=== PATIENT | female | born 1950 | race Caucasian/White ===

== ENCOUNTER → 2016-10-29 | Outpatient (CLI) | payer OTHER ==
[~2016-10-29] MED LIST: AMLO5CAP2 PO; AMPH30TA2 PO; TRAZ50TA35 PO
[2016-10-29 13:11] LABS: BASO % 0.4 %; BASO ABS # 0.07 K/uL (0-0.2); COMPLETE YES; EOS % 2.8 %; HEMATOCRIT 35.2 % (37-47); IG% 0.3 %; LYMPH % 14.5 %; LYMPH ABS # 2.67 K/uL (1.2-3.4); MEAN CELL VOLUME 93.4 fL (80-100); MEAN CORPUSCULAR HEMOGLOBIN 31.6 pg (25-34); MEAN CORPUSCULAR HGB CONC 33.8 g/dl (32-36); MEAN PLATELET VOLUME 10.4 fL (7.4-10.4); MONO % 8.4 %; NEUT % 73.6 %; PLATELET COUNT 416 K/uL (130-400); RED BLOOD COUNT 3.77 M/uL (4.2-5.4); WHITE BLOOD COUNT 18.37 K/uL (4.8-10.8)
[2016-10-29 13:29] LABS: ALT/SGPT 17 U/L (12-78); AST/SGOT 16 U/L (15-37); BLOOD UREA NITROGEN 13 mg/dl (7-18); BUN/CREATININE RATIO 16.5 (10-20); CALCIUM 9.3 mg/dl (8.5-10.1); CARBON DIOXIDE 27 mmol/L (21-32); CHLORIDE 106 mmol/L (98-107); CHOLESTEROL 192 mg/dl (0-200); CREATININE 0.78 mg/dl (0.60-1.20); GLUCOSE 86 mg/dl (70-99); POTASSIUM 3.6 mmol/L (3.5-5.1); SODIUM 141 mmol/L (136-145); TRIGLYCERIDES 45 mg/dl (0-150); VERY LOW DENSITY LIPOPROT CALC 9 mg/dl
[2016-10-29 13:39] LABS: ALB/GLOB RATIO 0.9 (0.9-2); ALKALINE PHOSPHATASE 62 U/L (45-117); HDL CHOLESTEROL 95 mg/dl; LDL CHOLESTEROL CALCULATED 88 mg/dl
== END | disposition home or self-care (01) ==
LOC: C.LABMFLN 07:56
PROVIDERS: ATTEND Physician Assistant
DX: E78.5 Hyperlipidemia, unspecified (principal); F32.9 Major depressive disorder, single episode, unspecified; F41.9 Anxiety disorder, unspecified; F90.9 Attention-deficit hyperactivity disorder, unspecified type; I10 Essential (primary) hypertension

== ENCOUNTER 2017-01-14 04:43 | Emergency (ER) | payer OTHER ==
[~2017-01-14] VITALS: Ht 147.3 cm; Wt 46.2 kg
[2017-01-14 04:47] VITALS: TEMP 36.7; Ht 147.3 cm; Wt 46.2 kg
[2017-01-14] MEDS ORDERED: ONDANSETRON INJ 2 MG/ML 2 ML VIAL IV STA (05:08)
[2017-01-14] MEDS ORDERED: DiphenhydrAMINE HCL 50 MG/ML VIAL IV STA (05:08)
[2017-01-14] MEDS ORDERED: SODIUM CHLORIDE 0.9% 1000ML 1,000 ML IV STA (05:08)
[2017-01-14] MEDS ORDERED: AMPH30TA2 PO (05:12)
[2017-01-14] MEDS ORDERED: AMLO5CAP2 PO (05:12)
[2017-01-14] MEDS ORDERED: TRAZ50TA35 PO (05:12)
--- NOTE | 2017-01-14 05:12 | EMERGENCY ROOM VISIT NOTE ---
History Report prepared by Mariya: Med Fernández Under the Supervision of: Dr. Susan Fragoso D.O. First contact with patient: 04:56 Chief Complaint: ALLERGIC REACTION Stated Complaint: TONGUE SWELLIING History of Present Illness The patient is a 66 year old female who presents to the Emergency Room with complaints of an allergic reaction that began 4 hours ago. She is experiencing tongue swelling that began at this time. This occurred 1 year ago, but she does not know why or from what. She also experienced vomiting that began yesterday. She took Pepto Bismol to try to alleviate this symptom. She is currently experiencing nausea and abdominal pain. She denies any fever or diarrhea. She notes that the GI symptoms did not occur with the tongue swelling 1 year ago. She is also having mild trouble swallowing. She is currently taking Benazepril regularly. She also has a past medical history of a splenectomy. Source of History: patient Onset: 4 hours ago Position: tongue Symptom Intensity: mild Quality: other (Swelling) Timing: constant Associated Symptoms: + nausea, + vomiting, + abdominal pain, No fevers, No diarrhea Review of Systems See HPI for pertinent positives & negatives. A total of 10 systems reviewed and were otherwise negative. Past Medical & Surgical Medical Problems: (1) ADHD (attention deficit hyperactivity disorder) (2) Anxiety (3) Depression (4) HTN (hypertension) (5) Hyperlipidemia Surgical Problems: (1) History of splenectomy Family History Omitted secondary to age. Social History Smoking Status: Never Smoker Smokeless Tobacco Use: No Drug Use: none Marital Status: Housing Status: lives with significant other Occupation Status: retired Current/Historical Medications Scheduled Amlodipine/Benazepril (Lotrel 5MG/20MG), 1 CAP PO BID Amphetamine-Dextroamphetamine 30MG (Adderall 30MG), 30 MG PO DAILY Trazodone Hcl (Trazodone), 50 MG PO HS Allergies Coded Allergies: No Known Allergies (Unverified , 01/14/17) Physical Exam Vital Signs Date Time Temp Pulse Resp B/P (MAP) Pulse Ox O2 Delivery O2 Flow Rate FiO2 01/14/17 06:23 71 20 127/79 98 01/14/17 05:25 70 20 148/74 97 Room Air 01/14/17 05:07 Room Air 01/14/17 04:58 77 01/14/17 04:47 36.7 81 16 133/84 98 Room Air Physical Exam HEENT: Head - normocephalic and atraumatic. Pupils are equal, round, and reactive to light. Extraocular eye muscles are intact, and sclera are anicteric. Nose - moist nasal mucosa without discharge. Mouth - moist buccal mucosa. Oropharynx is nonerythematous and there is no tonsillar exudate. Very minimal swelling to the right side of the tongue. There is some slight black discoloration to the patient's tongue. Neck: Supple; no JVD, nuchal rigidity, cervical lymphadenopathy. Heart: Regular rate and rhythm. There is a normal S1 and S2 with no murmurs, clicks, or gallops appreciated. Lungs: Clear to auscultation bilaterally with no wheezes, rales, or rhonchi. Abdomen: Soft, completely nontender, nondistended, with good bowel sounds. There are no palpable pulsatile masses or hepatosplenomegaly. There is no guarding, rigidity, or rebound noted. Extremities: No evidence of cyanosis, clubbing, or edema. There are easily palpable peripheral pulses. Skin: warm and dry with good turgor and no rashes. Medical Decision & Procedures Laboratory Results 01/14/17 05:30 Red Blood Count 4.58, Mean Corpuscular Volume 91.5, Mean Corpuscular Hemoglobin 30.3, Mean Corpuscular Hemoglobin Concent 33.2, Neutrophils (%) (Auto) 58.6, Lymphocytes (%) (Auto) 32.1, Monocytes (%) (Auto) 7.5, Eosinophils (%) (Auto) 1.2, Basophils (%) (Auto) 0.4, Neutrophils # (Auto) 6.67, Lymphocytes # (Auto) 3.65, Monocytes # (Auto) 0.85, Eosinophils # (Auto) 0.14, Basophils # (Auto) 0.04 01/14/17 05:30 Test 01/14/17 05:30 White Blood Count 11.37 K/uL (4.8-10.8) Red Blood Count 4.58 M/uL (4.2-5.4) Hemoglobin 13.9 g/dL (12.0-16.0) Hematocrit 41.9 % (37-47) Mean Corpuscular Volume 91.5 fL (80-100) Mean Corpuscular Hemoglobin 30.3 pg (25-34) Mean Corpuscular Hemoglobin Concent 33.2 g/dl (32-36) Platelet Count 526 K/uL (130-400) Neutrophils (%) (Auto) 58.6 % Lymphocytes (%) (Auto) 32.1 % Monocytes (%) (Auto) 7.5 % Eosinophils (%) (Auto) 1.2 % Basophils (%) (Auto) 0.4 % Neutrophils # (Auto) 6.67 K/uL (1.4-6.5) Lymphocytes # (Auto) 3.65 K/uL (1.2-3.4) Monocytes # (Auto) 0.85 K/uL (0.11-0.59) Eosinophils # (Auto) 0.14 K/uL (0-0.5) Basophils # (Auto) 0.04 K/uL (0-0.2) Immature Granulocyte % (Auto) 0.2 % Immature Granulocyte # (Auto) 0.02 K/uL (0.00-0.02) Anion Gap 5.0 mmol/L (3-11) Est Creatinine Clear Calc Drug Dose 42.6 ml/min Estimated GFR () 83.3 Estimated GFR (Non- 71.9 BUN/Creatinine Ratio 11.6 (10-20) Calcium Level 9.3 mg/dl (8.5-10.1) Laboratory results per my review. Medications Administered Medications (Trade) Dose Ordered Sig/Ingrid Route Start Time Stop Time Status Last Admin Dose Admin Diphenhydramine HCl (Benadryl Inj) 25 mg NOW STAT IV 01/14/17 05:08 01/14/17 05:10 DC 01/14/17 05:23 25 MG Ondansetron HCl (Zofran Inj) 4 mg NOW STAT IV 01/14/17 05:08 01/14/17 05:10 DC 01/14/17 05:23 4 MG Sodium Chloride 1,000 ml @ 999 mls/hr Q1H1M STAT IV 01/14/17 05:08 01/14/17 06:08 DC 01/14/17 05:23 999 MLS/HR Procedure Sodium Chloride 1000 ml @ 999 mls/hr IV Zofran Inj 4 mg IV Benadryl Inj 25 mg IV ED Course 0456: Past medical records reviewed. The patient was evaluated in room B4B. A complete history and physical exam was performed. An IV lock was initiated and labs were drawn as above. 0508: Ordered Sodium Chloride 1000 ml @ 999 mls/hr IV, Zofran Inj 4 mg IV, Benadryl Inj 25 mg IV 0550: After reexamination, the patient feels better. Her tongue swelling has gone down. She is no longer nauseated. She will try to drink cranberry juice. 0624: Upon reevaluation, the patient is resting. I discussed findings and results with her. She is able to drink without any difficulty. She verbalized agreement of the treatment plan. She was discharged home. Medical Decision The patient is a 66 year old female who presents to the ED with an allergic reaction. Differential diagnosis includes allergic reaction, gastritis, viral illness, and angioedema. I attest that I have personally reviewed the patient's current medication list. Patient was found to have normal blood pressure on screening and does not require follow-up. Laboratory Results: Normal renal function, glucose 104, mild leukocytosis with a white blood cell count of 11.3, and stable H&H. The patient has been taking an ABUNDIO inhibitor for a long time. She developed swelling to the group home of her tongue seemed evening. She has been having some vomiting over the past 12 hours. I explained to her that the tongue swelling could be secondary to angioedema from an ABUNDIO inhibitor. She will need to stop this medication. She received Zofran here in the emergency department and no longer is nauseated. She is able to drink clear liquids. I have asked her to follow-up with her PCP with regards to new blood pressure medications. If symptoms worsen, she should return to the ER. Impression Primary Impression: ABUNDIO inhibitor-aggravated angioedema Additional Impression: Vomiting Scribe Attestation The scribe's documentation has been prepared under my direction and personally reviewed by me in its entirety. I confirm that the note above accurately reflects all work, treatment, procedures, and medical decision making performed by me. Departure Information Dispostion Home / Self-Care Referrals Carrie Julien Forms HOME CARE DOCUMENTATION FORM, IMPORTANT VISIT INFORMATION Patient Instructions ED Angioedema, My [facility], Vomiting - [facility] Additional Instructions Rest. Take plenty of clear liquids and a bland diet. Stop your combination BP med as it has an Abundio Inhibitor in it that may have caused your tongue swelling. Follow up with your PCP with regards to a different BP med Problem Qualifiers Primary Impression: ABUNDIO inhibitor-aggravated angioedema Encounter type: initial encounter Qualified Codes: T78.3XXA - Angioneurotic edema, initial encounter; T46.4X5A - Adverse effect of angiotensin-converting- enzyme inhibitors, initial encounter Additional Impression: Vomiting Vomiting type: unspecified Vomiting Intractability: non-intractable Nausea presence: with nausea Qualified Codes: R11.2 - Nausea with vomiting, unspecified
[2017-01-14 06:05] LABS: BASO % 0.4 %; BASO ABS # 0.04 K/uL (0-0.2); COMPLETE YES; EOS % 1.2 %; HEMATOCRIT 41.9 % (37-47); IG% 0.2 %; LYMPH % 32.1 %; LYMPH ABS # 3.65 K/uL (1.2-3.4); MEAN CELL VOLUME 91.5 fL (80-100); MEAN CORPUSCULAR HEMOGLOBIN 30.3 pg (25-34); MEAN CORPUSCULAR HGB CONC 33.2 g/dl (32-36); MONO % 7.5 %; NEUT % 58.6 %; PLATELET COUNT 526 K/uL (130-400); RED BLOOD COUNT 4.58 M/uL (4.2-5.4); WHITE BLOOD COUNT 11.37 K/uL (4.8-10.8)
[2017-01-14 06:08] LABS: BUN/CREATININE RATIO 11.6 (10-20); CALCIUM 9.3 mg/dl (8.5-10.1); CREATININE 0.85 mg/dl (0.60-1.20); POTASSIUM 3.6 mmol/L (3.5-5.1)
[2017-01-14 06:23] VITALS: BP 127/79; PULSE 71; O2SAT 98
== END 2017-01-14 06:25 | disposition home or self-care (01) ==
LOC: C.EDB 04:44
DX: T46.4X5A Adverse effect of angiotensin-converting-enzyme inhibitors, initial encounter (principal); R11.10 Vomiting, unspecified; F32.9 Major depressive disorder, single episode, unspecified; I10 Essential (primary) hypertension; F90.9 Attention-deficit hyperactivity disorder, unspecified type; Z79.899 Other long term (current) drug therapy

== ENCOUNTER → 2017-01-19 | Outpatient (CLI) | payer OTHER | END | disposition home or self-care (01) | LOC: C.LABMFLN 16:46 | PROVIDERS: ATTEND Physician Assistant | DX: R07.9 Chest pain, unspecified (principal) ==

== ENCOUNTER → 2017-11-29 | Outpatient (CLI) | payer OTHER ==
[2017-11-29 17:57] LABS: BASO % 0.5 %; BASO ABS # 0.04 K/uL (0-0.2); EOS % 1.3 %; EOS ABS # 0.11 K/uL (0-0.5); HEMATOCRIT 39.9 % (37-47); HEMOGLOBIN 13.1 g/dL (12.0-16.0); IG# 0.01 K/uL (0.00-0.02); LYMPH % 25.6 %; LYMPH ABS # 2.09 K/uL (1.2-3.4); MEAN CELL VOLUME 94.5 fL (80-100); MEAN CORPUSCULAR HGB CONC 32.8 g/dl (32-36); MEAN PLATELET VOLUME 10.3 fL (7.4-10.4); MONO % 9.1 %; MONO ABS # 0.74 K/uL (0.11-0.59); NEUT % 63.4 %; NEUT ABS # 5.18 K/uL (1.4-6.5); PLATELET COUNT 443 K/uL (130-400); RED CELL DISTRIBUTION WIDTH CV 15.2 % (11.5-14.5); RED CELL DISTRIBUTION WIDTH SD 52.6 fL (36.4-46.3); WHITE BLOOD COUNT 8.17 K/uL (4.8-10.8)
[2017-11-29 18:27] LABS: ALBUMIN 3.7 gm/dl (3.4-5.0); ALKALINE PHOSPHATASE 67 U/L (45-117); ALT/SGPT 27 U/L (12-78); AST/SGOT 23 U/L (15-37); BLOOD UREA NITROGEN 16 mg/dl (7-18); CALCIUM 8.6 mg/dl (8.5-10.1); CARBON DIOXIDE 30 mmol/L (21-32); CHOLESTEROL 245 mg/dl (0-200); CREATININE 0.81 mg/dl (0.60-1.20); GLUCOSE 92 mg/dl (70-99); LDL CHOLESTEROL CALCULATED 144 mg/dl; SODIUM 139 mmol/L (136-145)
== END | disposition home or self-care (01) ==
LOC: C.LABMFLN 11:19
PROVIDERS: ATTEND Physician Assistant
DX: E78.5 Hyperlipidemia, unspecified (principal); F41.9 Anxiety disorder, unspecified; F90.9 Attention-deficit hyperactivity disorder, unspecified type; I10 Essential (primary) hypertension; K21.9 Gastro-esophageal reflux disease without esophagitis